=== PATIENT | female | born 1970 | race Caucasian/White ===

== ENCOUNTER → 2021-12-17 | Outpatient (CLI) | payer MEDICARE ==
[2021-12-17 10:23] LABS: HEMOGLOBIN 14.4 gm/dl (12.3-15.3); RED BLOOD COUNT 5.04 M/UL (4.00-5.10); WHITE BLOOD COUNT 6.2 K/UL (4.5-11.0)
== END ==
LOC: MRI 08:26
PROVIDERS: Internal Medicine Gastroenterology
DX: K86.1 Other chronic pancreatitis (principal); Z90.49 Acquired absence of other specified parts of digestive tract; Z98.84 Bariatric surgery status
CPT/HCPCS: 36415; 74181; 83540; 83550; 85027